=== PATIENT | female | born 1970 | race African-American/Black ===

== ENCOUNTER → 2025-04-12 | Day surgery (SDC) | payer BC ==
[2025-04-09 09:38] LABS: BASOPHILS % 0.5 % (0.0-1.0); EOSINOPHILS % 2.0 % (0.0-6.0); LYMPHOCYTES % 33.7 % (18.0-39.1); MONOCYTES % 8.7 % (4.4-11.3); NEUTROPHILS % 54.7 % (38.7-80.0); RED CELL DISTRIBUTION WIDTH 13.2 % (11.7-14.4)
[2025-04-09 10:20] LABS: EST GLOMERULAR FILTRATION RATE 90.0 ML/MIN (>=60)
[~2025-04-12] MED LIST: ACETAMINOPHEN 1000 MG/100 ML 100 ML IV ONE; BUTALB-ACETAMI1 EACH PO; CELEBREX200 MG PO; DEXAMETHASONE SOD PHOS INJ 4 MG/ML SDV ONE; FAMOTIDINE 20 MG/2 ML VIAL IV ONE; FENTANYL CITRATE/PF 100MCG/2 ML INJ ONE; HYDROCODONE/APAP 7.5MG-325MG 1 EA TAB ONE; LACTATED RINGER'S 1,000 ML ONE; LIDOCAINE HCL 2% LOCAL INJ 5 ML SDV VIAL INJ ONE; ONDANSETRON HCL INJ 2MG/ML 2ML 2 MG/ML VIAL ONE; ONDANSETRON ODT4 MG PO; PROPOFOL IV EMULSION 10 MG/ML 20 ML VIAL ONE; ROSUVASTATIN CA20 MG PO; SEVOFLURANE INHAL SOLN 250 ML PEN BTL ONE; TIZANIDINE HCL4 MG PO
[2025-04-12] MEDS: LACTATED RINGER'S 1,000 ML ONE (10:27)
[2025-04-12] MEDS: CEFAZOLIN SODIUM 2 GM ONE (10:30)
[2025-04-12 11:55] VITALS: TEMP 97.6
[2025-04-12 12:55] VITALS: BP 118/71; PULSE 73; RESP 16; O2SAT 98
[2025-04-12] MEDS: HYDROCODONE/APAP 7.5MG-325MG 1 EA TAB PO ONE (12:57)
[2025-04-12] MEDS: ONDANSETRON HCL INJ 2MG/ML 2ML 2 MG/ML VIAL IV ONE (13:05)
== END | disposition home or self-care (01) ==
LOC: OR 09:45
PROVIDERS: ATTEND Orthopaedic Surgery
DX: S83.282A Other tear of lateral meniscus, current injury, left knee, initial encounter (principal); S83.242A Other tear of medial meniscus, current injury, left knee, initial encounter; M84.452A Pathological fracture, left femur, initial encounter for fracture; M84.462A Pathological fracture, left tibia, initial encounter for fracture; M94.262 Chondromalacia, left knee; M65.162 Other infective (teno)synovitis, left knee; X58.XXXA Exposure to other specified factors, initial encounter
CPT/HCPCS: 27599; 29881; 29999; 36415; 80053; 81025; 85025; 93005; C1713 ×2; J0131; J1100; J1308; J2003; J2405; J2704; J3010; J7121; 76000